=== PATIENT | male | born 1950 | race Caucasian/White ===

== ENCOUNTER 2023-09-13 07:51 | Day surgery (SDC) | payer MEDICARE, SELFPAY ==
[2023-09-13 08:22] VITALS: BP 140/72; PULSE 59; RESP 16; TEMP 36.6; O2SAT 100; BMI 30.5
[2023-09-13] MEDS: Lactated Ringers 1,000 ML 15 ML IV (08:25)
--- NOTE | 2023-09-13 08:48 | HP.PCM_ITS ---
History and Physical Date of Admission: 09/13/23 Date of Service: 09/04/23 MR#: [id number] Acct: [id number] Name: SHIRLENE ROSADO Rep #: [id number] : 1950 Provider: Dr. Hallie Florez MD Age/Sex: 73/M Location: [facility] Status: Signed Intake Vital Signs 08/30/2408:28 09/04/2411:59 Height 6 ft 2 in 6 ft 2 in Weight: 236 lb 236 lb BMI 30.2 30.2 BP 110/77 125/78 H Blood Pressure Location Rt brachial Rt brachial Position Sitting Sitting Respiration 18 18 Pulse 78 74 Pulse Source Monitor Monitor Temp 97.6 F L 97.3 F L Temp Source Temporal Pulse Oximetry (%) 91 95 Oxygen Delivery Method room air room air Intake Visit Reasons: PORT PLACEMENT Chief Complaint: port placement Accompanied by: Is patient in pain?: No Allergies trolamine salicylate Allergy (Unknown, Unverified 09/04/23 13:00) PT UNABLE TO RESPOND-NEEDS F/Uaspartame Adverse Reaction (Verified 09/04/23 13:00) PT UNSURE OF REACTION Medications aspirin 81 mg chewable tablet 81 mg PO DAILY 08/20/23 [History Confirmed 09/04/23] calcium carbonate 500 mg-vitamin D3 10 mcg (400 unit) tablet (Calcium 500 + D) 1 tab PO DAILY 08/20/23 [History Confirmed 09/04/23] chlorhexidine gluconate 0.12 % mouthwash 15 ml buccal BID 08/20/23 [History Confirmed 09/04/23] cyanocobalamin (vitamin B-12) 500 mcg tablet 500 mcg PO DAILY 08/20/23 [History Confirmed 09/04/23] gabapentin 300 mg capsule 300 mg PO DAILY 08/20/23 [History Confirmed 09/04/23] insulin aspart U-100 100 unit/mL (3 mL) subcutaneous pen 1 sliding scale dose subcut USEASDIRECTD 08/20/23 [History Confirmed 09/04/23] magnesium 200 mg tablet 200 mg PO DAILY 08/20/23 [History Confirmed 09/04/23] oxycodone 5 mg tablet 5 mg PO Q4H PRN 08/20/23 [History Confirmed 09/04/23] acetaminophen 500 mg tablet (Tylenol Extra Strength) 500 mg PO Q6H PRN 08/31/23 [History Confirmed 09/04/23] ascorbic acid (vitamin C) 1,000 mg capsule 1 g PO Q6H 08/31/23 [History Confirmed 09/04/23] atorvastatin 10 mg tablet 10 mg PO DAILY 08/31/23 [History Confirmed 09/04/23] insulin glargine 100 unit/mL subcutaneous solution (Lantus U-100 Insulin) 14 unit subcut QAM 08/31/23 [History Confirmed 09/04/23] pyridoxine (vitamin B6) 100 mg tablet 100 mg PO DAILY 08/31/23 [History Confirmed 09/04/23] zinc acetate 50 mg (zinc) capsule (Galzin) 50 mg PO DAILY 08/31/23 [History Confirmed 09/04/23] PFSH Medical History Atrial fibrillation Cancer of oral cavity Diabetes Tracheostomy present Surgical History History of laryngoscopy History of radical neck dissection Hx of appendectomy Hx of colonoscopy Hx of hernia repair Hx of skin graft Status post osteotomy Family History Mother Heart disease Myocardial infarction DiabetesBrother Myocardial infarction Cancer DiabetesSister Diabetes Social History household members: spouse Smoking Status: Former smoker pack-years: 15 Tobacco: How many years used: 15 Smokeless tobacco user: snuff substance use type: does not use HPI HPI HPI: 73-year-old male presents for discussion of port placement and PEG placement. Patient has a history of cancer of the oral cavity. Status post surgery July 30, 2023 to his right jaw/lip. Plan start chemo and radiation in approximately 6 weeks after surgery. Patient meets with oncology on . ROS General General: No weight change, appetite, fatigue, colon cancer, breast cancer or weakness HEENT HEENT: No difficulty swallowing, eye injury, eye surgery, swollen glands or hoarseness Endo Endocrine: Yes diabetes mellitus; No thyroid disease, thyroid cancer, Hair loss, heat intolerance or cold intolerance Skin Skin: No rash or changing moles Musc Musculoskeletal: No back problems, arthritis, rheumatoid arthritis, gout or joint pain Cardio Cardiovascular: Yes atrial fibrillation; No murmur, pacemaker, heart disease, high blood pressure, heart attack, heart stent, palpitations, shortness of breat with exertion or chest pain Psych Psychiatric: No depression, anxiety or hearing voices Resp Respiratory: No shortness of breath, No sleep apnea, No cough, No COPD, No asthma, No emphysema and No wheezing Gastro Gastrointestinal: No abdominal pain, No nausea or vomiting, No diarrhea, No constipation, No blood in stool, No acid reflux, No hemorrhoids, No ulcers, No gallbladder problem and No black,tarry stools Rich Hematologic: Yes blood thinners, No blood disorders, No bleeding, No anemia and No blood clots Additional Details: 81 mg aspirin Neuro Neurologic: Yes numbness (fingers and toes ), Yes tingling (fingers and toes ) and No weakness Exam Const General: cooperative and no acute distress HENMT Head: normocephalic Other: Incisions to the right lower jaw/lip healing well Neck Neck: supple Other: Previous trach incision well-healed, right neck/jaw incision healing well Chest Other: Palpation of bilateral upper chest within normal Resp Effort & Inspection: normal respiratory effort Cardio Rate: regular rate GI Inspection: non-distended Palpation: soft, no hernias and nontender Skin General: no rashes or lesions noted Neuro General: CN's II-XI intact bilaterally Extrem General: normal to inspection Psych Mental Status: mental status grossly normal Attitude: cooperative Assessment and Plan Assessment and Plan (1) Cancer of oral cavity: Status: Acute (2) Encounter for infusaport central venous catheter insertion: Status: Acute (3) Malnutrition: Status: Acute Plan Will have patient hold his baby aspirin for 5 days. I have discussed above with the patient- Port-a-Cath placement. Patient has been counseled as to the risks/benefits of the procedure. I have exp lained the risks of the surgery, including but not limited to: infection, bleeding, injury to any blood vessels/nerves, injury to lungs (such as pneumothorax or hemothorax and need for chest tube), not having any access, nonfunctioning of port due to thrombosis, infection of port, etc. the patient understands and agrees to proceed. I have answered all the patient's questions to the patient?s satisfaction and the patient has no further questions. I have discussed the above with the patient. I have offered the patient esophagogastroduodenoscopy with placement of PEG I have explained the risks/benefits of the procedure and described the procedure. I have discussed the risks with the patient, including but not limited to: infection, bleeding, perforation of the GI tract requiring emergency surgery, inability to complete the procedure, injury to any internal organs, complications of anesthesia, etc. - the patient understands and agrees to proceed. I have answered all the patient's questions to the patient's satisfaction and the patient has no further questions. Hallie Florez M.D. Pager: [phone] [facility] [address] [place] [address], [facility], [address] [place] [address] Office: [phone] Coding Level of Care Code Off vis,new,level 3 Diagnoses Cancer of oral cavity C06.9 Encounter for infusaport central venous catheter insertion Z45.2 Malnutrition E46 Clinical Quality Measures High Blood Pressure Screening/Follow Up High Blood Pressure follow-up Instructions: Recommended Blood Pressure Follow-Up Interventions: *Normal BP: No follow-up required for SBP < 120 mmHg and DBP < 80 mmHg: *Elevated BP: Patients with SBP of 120-129 mmHg and DBP < 80 mmHg: *Referral to Alternate/Primary Care Health Filtration Operator OR * Follow-up with rescreen in 2 to 6 months AND recommend nonpharmacologic interv entions * First Hypertensive BP Reading: Patients with one elevated reading of SBP >=130 mmHg OR DBP >= 80 mmHg: *Referral to Alternate/Primary Care Health Professional OR *Follow-up with rescreen in >1 day and < 4 weeks AND recommend nonpharmacologic interventions *Second Hypertensive BP Reading: *Second Hypertensive BP Reading:Patients with second elevated reading of SBP of 130-139 mmHg or DBP of 80-89 mmHg (and not SBP >=140 or DBP >=90): * Referral to Alternate/Primary Care Health Filtration Operator OR *Nonpharmacological Intervention AND reassessment in 2-6 months AND an order for a laboratory test or ECG for hypertension *Second Hypertensive BP Reading: SBP >=140 or DBP >=90 *Referral to Alternate/Primary Care Healthcare Professional OR *Nonpharmacological Intervention AND BP lowering medication AND reassessment within 4 weeks AND an order for a laboratory test or ECG for hypertension BP Second Hypertensive Readings: For both questions related to the second hypertensive readings, orders for lab/ECG need to be placed in addition to responding to the non-pharmacological and follow up questions. 09/05/23 1118 <Electronically signed by Hallie Florez MD> Date Hallie Florez MD
--- NOTE | 2023-09-13 08:49 | OP.PCM_ITS ---
Report of Operation Date of Procedure: 09/13/23
--- NOTE | 2023-09-13 08:49 | PCM.OPRPT ---
Report of Operation Date of Procedure: 09/13/23
[2023-09-13 09:19] LABS: Bedside Glucose 127 mg/dL (74-106)
[2023-09-13] MEDS: Cefazolin 2 GM in 0.9% Normal Saline (100mL Bag) 100 ML IV (09:43)
[2023-09-13] MEDS: Lidocaine 1% /Epi 1:100 (20ml) 20 ML Vial (10:17)
[2023-09-13] MEDS: Bupivacaine Mpf 0.5% 30 ML VIAL (10:17)
--- NOTE | 2023-09-13 10:25 | PCM.OPRPT ---
Report of Operation Date of Procedure: 09/13/23 Pre-Operative Diagnosis: z45.2, oral cancer Post-Operative Diagnosis: Same Surgery/Procedure Performed:: 1. Placement of left IJ Port-A-Cath Use of ultrasound Use of fluoroscopy Surgeon: Hallie Florez Type of Anesthesia: Local MAC Anesthesiologist: Uriah Robison Special Medications: Ancef 2 g IV x 1 Estimated Blood Loss (mL): < 10 cc Description of Procedure: After informed consent was given, the patient was brought to the operating room and placed in the supine position. Appropriate time out protocol was followed. Patient was then given IV conscious sedation for anesthesia. The patient's left upper chest and neck were then prepped with a surgical skin preparation and sterile surgical drapes were placed. After proper landmarks were ascertained, the skin at the upper left chest area was then infiltrated with 1:1 mixture of 1% lidocaine with epinephrine and 0.5% marcaine. A needle trocar was then inserted into the left internal jugular vein with ultrasound guidance-multiple vessels were viewed with u/s and the Left IJ was chosen-- and there was good aspiration of venous blood. A wire was then threaded into the needle trocar and this was visualized under fluoroscopy to ensure that the wire was in the superior vena cava. Once this was done, then the needle trocar was removed. A small skin jorge luis was made with an 11 blade knife at the wire entrance site. The dilator with the introducer sheath attached was then placed over the wire into the left internal jugular vein via the Seldinger technique and this was visualized under fluoroscopy. The dilator and sheath were in proper position as visualized by fluoroscopy. A subcutaneous pocket was then created caudad to the catheter insertion site. A transverse skin incision was made after the skin and subcutaneous tissues were infiltrated with local anesthetic. Blunt dissection was then used to create a space large enough for placement of the subcutaneous port. The catheter was then tunneled into the subcutaneous pocket. The wire and dilator were then removed. The catheter was then threaded into the introducer sheath and was positioned with its tip at the junction of the superior vena cava and the right atrium as visualized under fluoroscopy. The excess catheter was transected. The catheter was then attached to the subcutaneous port using manufacturers guidelines. The catheter was flushed with a heparin saline mixture prior to placement. Hemostasis was carefully controlled with electrocautery. The port was sutured to the subcutaneous fascia using 2-0 Vicryl suture at two sites. The port was then placed in the subcutaneous pocket. The incision were reapproximated with interrupted subdermal 3-0 vicryl sutures. The skin was reapproximated with 3-0 nylon suture in a interrupted fashion. Steristrips were used for reinforcement of the skin closure at IJ insertion site and a sterile opsite dressings were applied. The patient tolerated the procedure well. Grafts/Implants Used: Bard PowerPort isp M.R.I. 6Fr Lot [id number] Complications none
--- NOTE | 2023-09-13 10:42 | DCINST_ITS ---
Discharge Instructions Procedure Port-A-Cath Diet Discharge Diet: Light diet - advance as tolerated Activity May shower in (days): 5 (Keep port site clean and dry x5 days. Neck incision okay to get wet after 1 day. Okay to lower shower and upper sponge bath. OR okay to taper off port site with a Ziploc bag to shower) Lifting Restrictions: No lifting > 15 pounds for 3 days with the arm on the side of the port Dressing / Incision Call your doctor if your incision/area has: Continuous Slow Oozing, Sudden Increased Bleeding, Increased Pain/ Swelling, Increased Redness, Foul Smelling Discharge and Swelling at the incision site Call your doctor if you observe: Fever of 101 or Higher Change Dressing in: 2 days (2-3 days- port site; ok to remove neck opsite in 1 day) Additional Dressing/Incision Instructions:: Clean PEG site daily, flush with 60 cc tap water daily Follow Up Care Please Follow Up With: Hallie Florez MD When: In 10 days for permanent suture removal?call office for appointment Test Results: Test results from this visit will be discussed in further detail at your follow- up appointment, if applicable. Discharge Plan Admission Attending Provider: Hallie Florez Primary Care Provider: Blanca Cooney Discharge Orders/Prescriptions Prescriptions: Continued calcium carbonate-vitamin D3 [Calcium 500 + D] 500 mg-10 mcg (400 unit) tablet 1 tab PO DAILY chlorhexidine gluconate 0.12 % mouthwash 15 ml buccal BID PRN PRN (Reason: MOUTH) cyanocobalamin (vitamin B-12) 500 mcg tablet 500 mcg PO DAILY gabapentin 300 mg capsule 300 mg PO DAILY PRN PRN (Reason: pain) insulin aspart U-100 100 unit/mL (3 mL) insulin pen 1 sliding scale dose subcut USEASDIRECTD magnesium 200 mg tablet 200 mg PO DAILY pyridoxine (vitamin B6) 100 mg tablet 100 mg PO DAILY atorvastatin 10 mg tablet 10 mg PO DAILY acetaminophen [Tylenol Extra Strength] 500 mg tablet 500 mg PO Q6H PRN (Reason: pain) insulin glargine [Lantus U-100 Insulin] 100 unit/mL solution 14 unit subcut QAM prochlorperazine maleate 10 mg tablet 10 mg PO Q6H PRN (Reason: nausea and vomiting) Qty: 30 2RF lidocaine-prilocaine 2.5-2.5 % cream 1 applic topical ONCE PRN (Reason: port access) 30 Days Qty: 30 2RF ondansetron HCl 8 mg tablet 8 mg PO Q8H Qty: 30 1RF oxycodone 5 mg tablet 5 mg PO Q4H PRN (Reason: pain) 3 Days Qty: 10 0RF Held aspirin 81 mg tablet,chewable 81 mg PO DAILY Hold Instructions: Resume on 09/14/23. Referrals / Follow Up: Blanca Cooney MD [Primary Care Provider] - Disposition Disposition (needs filled in before D/C Order can be placed): Home, Self Care
[2023-09-13 10:47] VITALS: BP 138/70; BP 140/72; PULSE 64; RESP 18; TEMP 36; O2SAT 94
[2023-09-13 10:55] VITALS: BP 122/69; BP 140/72; PULSE 63; RESP 16; O2SAT 96
--- NOTE | 2023-09-13 10:55 | RAD_ITS ---
STUDY: X-RAY CHEST REASON FOR EXAM: Male, 73 years old. Port -- PORTABLE PACU TECHNIQUE: Single AP portable view of the chest. COMPARISON: None. FINDINGS: A left-sided Port-A-Cath has been inserted. Tip is in the midportion of the superior vena cava. Surgical clips are seen in the right cervical region. The lungs are clear and expanded. There is no demonstrated pleural abnormality. There is mild cardiac enlargement. Normal mediastinum and radha. Normal visualized pulmonary arteries. There is atherosclerotic tortuosity of the aortic arch and descending thoracic aorta. There are diffuse degenerative changes of the visualized thoracic spine. Normal visualized ribs, clavicles, and shoulders. There is no demonstrated abnormality of the visualized soft tissue structures of the upper abdomen. RAD/Chest 1 View (Portable) IMPRESSION: The tip of the left-sided portacatheter is at the midportion of the superior vena cava. Electronically Signed: Kingsley Terrell MD at 11:56 EDT ,
--- NOTE | 2023-09-13 10:58 | OP.CCLET_ITS ---
09/13/2023 [facility] Re : Upper GI endoscopy procedure for Guevara Mcneillmelinda Cooney This procedure was performed on September. My impressions and recommendations are as follows: Impressions : - Z-line irregular. - Normal examined duodenum. - Normal stomach. - An externally removable PEG placement was successfully completed. - No specimens collected. Recommendations : - Please follow the post-PEG recommendations including: change dressing on top of bumper daily and flush PEG daily with 60 ml water. - Continue present medications. My findings are described in the full procedure note, which is enclosed. If I can be of further assistance, please feel free to contact me at Doctor phone number(s): , Work: . Sincerely, MD Hallie Ortiz MD 09/13/2023 10:58:15 AM This report has been signed electronically.
--- NOTE | 2023-09-13 10:58 | OP.EGD_ITS ---
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 Complications: No immediate complications. Procedure: Pre-Anesthesia Assessment: - Prior to the procedure, a History and Physical was performed, and patient medications and allergies were reviewed. The patient's tolerance of previous anesthesia was also reviewed. The risks and benefits of the procedure and the sedation options and risks were discussed with the patient. All questions were answered, and informed consent was obtained. Prior Anticoagulants: The patient has taken no anticoagulant or antiplatelet agents except for aspirin. ASA Grade Assessment: Per anesthesia. After reviewing the risks and benefits, the patient was deemed in satisfactory condition to undergo the procedure. After obtaining informed consent, the endoscope was passed under direct vision. Throughout the procedure, the patient's blood pressure, pulse, and oxygen saturations were monitored continuously. The Endoscope was introduced through the mouth, and advanced to the second part of duodenum. The upper GI endoscopy was accomplished without difficulty. The patient tolerated the procedure well. Scope In: 10:28:26 AM Scope Out: 10:38:03 AM Total Procedure Duration Time 0 hours 9 minutes 37 seconds Findings: The Z-line was irregular. The examined duodenum was normal. The stomach was normal. The patient was placed in the supine position for PEG placement. The stomach was insufflated to appose gastric and abdominal hale. A site was located in the body of the stomach with excellent transillumination for placement. The abdominal wall was marked and prepped in a sterile manner. The area was anesthetized with 5 mL of 0.5% lidocaine. The trocar needle was introduced through the abdominal wall and into the stomach under direct endoscopic view. A snare was introduced through the endoscope and opened in the gastric lumen. The guide wire was passed through the trocar and into the open snare. The snare was closed around the guide wire. The endoscope and snare were removed, pulling the wire out through the mouth. A skin incision was made at the site of needle insertion. The externally removable 20 Fr EndoVive Safety gastrostomy tube was lubricated. The G-tube was tied to the guide wire and pulled through the mouth and into the stomach. The trocar needle was removed, and the gastrostomy tube was pulled out from the stomach through the skin. The external bumper was attached to the gastrostomy tube, and the tube was cut to remove the guide wire. The final position of the gastrostomy tube was confirmed by relook endoscopy, and skin marking noted to be 3.5 cm at the external bumper. The final tension and compression of the abdominal wall by the PEG tube and external bumper were checked and revealed that the bumper was loose and lightly touching the skin. The feeding tube was capped, and the tube site cleaned and dressed. Impression: - Z-line irregular. - Normal examined duodenum. - Normal stomach. - An externally removable PEG placement was successfully completed. - No specimens collected. Recommendation: - Please follow the post-PEG recommendations including: change dressing on top of bumper daily and flush PEG daily with 60 ml water. - Continue present medications. 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 All rights reserved. The codes documented in this report are preliminary and upon physician coder review may be revised to meet current compliance requirements. MD Hallie Ortiz MD 09/13/2023 10:58:15 AM This report has been signed electronically. Number of Addenda: 0 Note Initiated On: 09/13/2023 10:26 AM
[2023-09-13 11:02] VITALS: BP 133/63; BP 140/72; PULSE 58; RESP 16; TEMP 36.2; O2SAT 96
[2023-09-13 11:24] LABS: Bedside Glucose 142 mg/dL (74-106)
[2023-09-13 11:47] VITALS: BP 140/72
== END 2023-09-13 12:12 | disposition home or self-care (01) ==
LOC: SDC 07:56 → AC 07:56
PROVIDERS: PCP Internal Medicine; Referring Provider Surgery; Visit Provider Surgery
PROC: 0DJ08ZZ Inspection of Upper Intestinal Tract, Via Natural or Artificial Opening Endoscopic (ICD-10-PCS; CPT 43235; principal; 2023-09-13 09:25)
PROC: (CPT 36561; principal; 2023-09-13 09:30)
DX: Z45.2 Encounter for adjustment and management of vascular access device (principal); C06.9 Malignant neoplasm of mouth, unspecified; I48.91 Unspecified atrial fibrillation; E11.9 Type 2 diabetes mellitus without complications; Z79.4 Long term (current) use of insulin; Z87.891 Personal history of nicotine dependence; E46 Unspecified protein-calorie malnutrition; Z79.82 Long term (current) use of aspirin; Z79.01 Long term (current) use of anticoagulants; Z85.00 Personal history of malignant neoplasm of unspecified digestive organ; Z79.899 Other long term (current) drug therapy; Z68.31 Body mass index [BMI] 31.0-31.9, adult
CPT/HCPCS: 36561; 43246; 00532; 71045; 77001; 82962; J7120